=== PATIENT | male | born 1955 | race African-American/Black ===

== ENCOUNTER 2017-05-14 08:31 | Outpatient (CLI) | payer MEDICARE, MEDICAID ==
[2017-05-14] MEDS ORDERED: Gadobenate Dimeglumine 529 MG/1 ML (20ML VIAL) ONE (14:05)
== END 2017-05-14 08:32 | disposition home or self-care (01) ==
LOC: BICMRI 08:31
PROVIDERS: ATTEND Internal Medicine Gastroenterology
DX: K74.60 Unspecified cirrhosis of liver (principal); R17 Unspecified jaundice; R18.8 Other ascites; K76.89 Other specified diseases of liver; Z86.19 Personal history of other infectious and parasitic diseases
CPT/HCPCS: 74183; A9579

== ENCOUNTER 2017-05-22 09:36 | Inpatient (IN) | payer MEDICARE, MEDICAID ==
[2017-05-22 10:40] LABS: INR-International Normal Ratio 2.9; PTT 46.8 SEC (22.9-36.1); Prothrombin Time 31.4 SEC (12.0-14.7)
[2017-05-22 10:56] LABS: ALT (SGPT) 37 U/L (8-55); AST (SGOT) 131 U/L (5-34); Albumin 1.8 g/dL (3.5-5.0); Alkaline Phosphatase 74 U/L (40-150); Anion Gap 19 mmol/L (10-20); BUN (Urea Nitrogen) 20 mg/dL (8.4-25.7); Bilirubin, Total 20.8 mg/dL (0.2-1.2); CK (CPK) 71 U/L (30-200); Calc. Creatinine Clearance 0 mL/min (70-130); Calcium 8.5 mg/dL (7.8-10.44); Carbon Dioxide 17 mmol/L (22-29); Chloride 100 mmol/L (98-107); Estimated GFR-MDRD 26; Globulin 4.4 g/dL (2.4-3.5); Glucose 86 mg/dL (70-105); Lipase 5 U/L (8-78); Potassium 3.5 mmol/L (3.5-5.1); Protein, Total 6.2 g/dL (6.0-8.3); Sodium 132 mmol/L (136-145)
[2017-05-22 11:01] LABS: Band 4 % (5-11); Hemoglobin 7.5 g/dL (14.0-18.0); Lymphocytes 7 % (21-51); MDiff Complete? YES; Macrocytosis MODERATE=16-30 cells (100X) (0-5/hpf); Mean Corpuscular HGB CONC 33.1 g/dL (32.0-36.0); Mean Corpuscular Hemoglobin 38.5 pg (27.0-31.0); Mean Platelet Volume 9.2 fL (7.4-10.4); Monocytes 7 % (0-10); Neutrophil 80 % (42-75); PLT Morphology Comment Appears Decreased; Platelet Count 126 thou/uL (130-400); Polychromasia SLIGHT = 2-3 cells (100X) (0-2/hpf); RBC Distribution Width 14.7 % (11.5-14.5); Reactive Lymphocytes 2 % (0-10); Red Blood Cell (RBC) Count 1.96 mill/uL (4.70-6.10); Target Cells SLIGHT = 2-5 cells (100X) (0-1/hpf); White Blood Cell (WBC) Count 14.8 thou/uL (4.8-10.8)
[2017-05-22] MEDS ORDERED: Pantoprazole 40 MG VIAL ONE (11:02)
[2017-05-22 11:05] LABS: CKMB 2.2 ng/mL (0-6.6); Troponin I 0.065 ng/mL (< 0.028)
--- NOTE | 2017-05-22 11:06 | RAD ---
SINGLE VIEW OF THE CHEST: Comparison: 10-22-14 History: Altered mental status. FINDINGS: Single view of the chest shows a normal sized cardiomediastinal silhouette. There is no evidence of c onsolidation, mass, or pleural effusion. The bones are unremarkable. IMPRESSION: No evidence of acute cardiopulmonary disease. POS: [facility]
--- NOTE | 2017-05-22 11:09 | CT ---
NONCONTRAST HEAD CT: History: Decreased PO intake and hematemesis. Altered mental status. Comparison: None. Technique: Noncontrast head CT was performed from skull base to skull vertex. FINDINGS: No parenchymal hemorrhage. No extraaxial hematoma. No midline shift. Basilar cisterns are patent. Brain volume is age appropriate. Cortical gómez white matter differentiat ion is preserved. Ventricles and sulci are patent and symmetric. Minimal chronic small vessel ischemic change of the white matter. Calvarium is intact. Adequate aeration of the sinuses and mastoid air cells. IMPRESSION: No acute intracranial process. POS: [facility]
[2017-05-22] MEDS ORDERED: cefTRIAXone\\ROCEPHIN 2 GM, Admixture Fee 1 EACH in Sodium Chloride 0.9% 100 ML IVPB SCH (11:15)
[2017-05-22] MEDS ORDERED: Octreotide Acetate 100 MCG/ML VIAL SLOW IVP SCH (11:30)
[2017-05-22] MEDS ORDERED: Octreotide Acetate 1,250 MCG in Sodium Chloride 0.9% 250 ML 250 ML IVPB SCH ×2 (11:30→15:30)
[2017-05-22 12:52] LABS: Bilirubin Large (Negative); Blood, Urine Small (Negative); Leukocyte Negative (Negative)
[2017-05-22 12:53] LABS: Clarity Hazy (Clear)
[2017-05-22 12:54] LABS: Glucose, Urine (Dipstick) Unable to Interpret mg/dL (Negative); Nitrite Unable to Interpret (Negative)
--- NOTE | 2017-05-22 12:54 | HP ---
REASON FOR ADMISSION: Hematemesis. HISTORY OF PRESENT ILLNESS: This is a pleasant 61-year-old gentleman with a history of alcohol abuse and stomach cancer. He also has a history of, I believe, chronic pain in his neck and back. He was seen in my clinic roughly 2-3 weeks ago where he was noticed to be jaundiced. I did order lab and bowen cesar was found to have elevated liver enzymes and elevated bilirubin. He was sent to GI and I believe bowen cesar underwent further testing. He was found to have cirrhosis. At that time he was advised to stop dr bergman. What brought him to the hospital was yesterday he said he had 3 episodes of vomiting blood. His at that time wanted him to go to the emergency room; however, he refused. This morning he had a follow up appointment with Dr. Briones and his told him that he had been throwing up blood and therefore they advised him to go to the hospital. He also had altered level of consciousness. Bowen cesar also had abdominal pain. Currently, the patient is lethargic, but will respond to questioning and his family is at bedside. PAST MEDICAL HISTORY: 1. Stomach cancer with perforated ulcer in the past. 2. Dyslipidemia. 3. History of pulmonary embolism. PAST SURGICAL HISTORY: 1. Left shoulder surgery x2. 2. Right knee surgery. 3. Splenectomy. 4. I believe he had recent neck surgery or back surgery as well; however, the records of this are un available. ALLERGIES: None. MEDICATIONS: Currently unknown at this time of dictation. SOCIAL HISTORY: He does smoke cigars. He did drink a bottle of wine a day. However, he has cut primo t back to only one bottle in the last 2 weeks. FAMILY HISTORY: Noncontributory. REVIEW OF SYSTEMS: GENERAL: Admits to weakness, fatigue, no fever or chills. HEENT: No diplopia, amaurosis fugax, tinnitus, sore throat, hoarseness. CARDIOVASCULAR: No chest, arm or back pain. PULMONARY: He does have a history of PE. No cough or hemoptysis. GASTROINTESTINAL: See history of present illness. GENITOURINARY: No dysuria, nocturia, polyuria. ENDOCRINE: No polydipsia or heat or cold intolerance. MUSCULOSKELETAL: Admits to arthralgias. No lupus or myopathy. NEUROLOGIC: No history of TIA or seizure. All other systems are negative. PHYSICAL EXAMINATION: GENERAL: Pleasant gentleman who appears to be in no acute distress; however, he is jaundiced. He is lethargic. VITAL SIGNS: Blood pressure was 100/70, pulse 100, respirations 20. He is afebrile. HEENT: PERRLA, sclera clear and icteric. He had no arcus senilis or xanthelasma. He is jaundiced: NECK: Supple with no increased JVP or carotid bruit. Carotid had good upstroke with no thyromegaly. COR: Regular rate and rhythm. CHEST: Symmetrical. Clear to auscultation and percussion. ABDOMEN: Tight, positive ascites. Normoactive bowel sounds. He is tender in all quadrants. EXTREMITIES: Trace edema. He had palpable pedal pulses. SKIN: There is no evidence of ulcer, lesion or rash. NEUROLOGIC: He is awake and will answer questions, but is slow to respond. LABORATORY DATA: Showed white blood cell 14.8, H&H 7.5 and 22.8, platelet count 126. His sodium is 132, his creatinine is 3.04. Total bilirubin is 20, AST is 131. Brain CT was unremarkable. ASSESSMENT: 1. Hematemesis. 2. Cirrhosis. 3. Alcohol abuse. 4. Anemia secondary to above. 5. History of tobacco abuse. 6. Chronic pain. 7. Hypotension. 8. Multiple medical problems. PLAN: 1. The patient will be transferred to [facility] [place] where he will be kept n.p.o. We will also ask Dr. Briones to see the patient in consultation. 2. We will continue Protonix drip. 3. We will continue D5 half normal saline at 75 mL an hour. 4. We will begin Rocephin 1 gram IV q.24h. 5. H&H q.6 hours x2 will be ordered. 6. Blood work is already started to be transfused. 7. Dr. Brioens has already been asked to see the patient in consultation. 8. We will follow up in the morning. All questions answered to the patient's and 's satisfaction.
[2017-05-22 12:56] LABS: Urobilinogen UNABLE TO INTERPRET mg/dL (0.2-1.0)
[2017-05-22 13:00] LABS: Protein, Urine (Dipstick) 30 mg/dL (Neg-Trace); pH, Urine 5.7 (5.0-9.0)
[2017-05-22 13:01] LABS: RBC/HPF 0-3 HPF (0-3); WBC/HPF 0-3 HPF (0-3)
[2017-05-22 13:02] LABS: Bacteria/HPF None Seen HPF (None Seen); Crystals/HPF 1+ AMORPH URATES HPF (Negative); Hyaline Casts/LPF 4-6 HYALINE CAST LPF (0-3 Hyaline); Other Casts/LPF 7-10 EPITH CASTS LPF (0-3 Hyaline)
[2017-05-22] MEDS ORDERED: Succinylcholine Chloride 20 MG/ML 10 ml SYRINGE FS ONE (14:28)
[2017-05-22] MEDS ORDERED: PROPOFOL 200 MG/20 ML VIAL ONE (14:28)
[2017-05-22] MEDS ORDERED: Ondansetron HCl/PF 4 MG/2 ML Vial ONE (14:28)
[2017-05-22] MEDS ORDERED: Multivitamins, Adult 10 ML, Folic Acid 1 MG, Thiamine HCl 100 MG in Dextrose 5 %-0.45 %... IV SCH (17:00)
[2017-05-22] MEDS: Pantoprazole 80 MG, Admixture Fee 1 EACH in Sodium Chloride 0.9% 100 ML IVP SCH (17:05)
[2017-05-22] MEDS ORDERED: Morphine 2 MG/ML SYRINGE SLOW IVP PRN (19:18)
[2017-05-22] MEDS ORDERED: Fentanyl BOLUS 250 ML IVPB PRN (19:18)
[2017-05-22] MEDS ORDERED: Lorazepam 2 MG/ML VIAL SLOW IVP PRN (19:18)
[2017-05-22] MEDS ORDERED: DISCONTINUE PREVIOUS NARCOTIC PAIN MEDICATIONS AND BENZODIAZEPINES FS SCH (19:18)
[2017-05-22] MEDS ORDERED: Morphine 4 MG/ML Carpuject SLOW IVP PRN (19:19)
[2017-05-22 19:25] LABS: pH, Arterial 7.35 (7.35-7.45)
[2017-05-22 19:26] LABS: Base Excess (BEa) 11.3 mEq/L (0 (+/-) 2.5); CO2 Tension 24.1 mmHg (35.0-45.0); O2 Tension (PaO2) 150.3 mmHg (80.0-100.0)
[2017-05-22 19:27] LABS: Calcium, Ionized 1.1 mmol/L (1.12-1.30); Hematocrit-ABG 27.2 % (42.0-52.0); Hemoglobin (Hb) 8.3 g/dL (14.0-18.0)
[2017-05-22 19:28] LABS: Puncture Site RRA
[2017-05-22 19:29] LABS: ALV-art Gradient 101.175 (0-20)
[2017-05-22] MEDS: Sodium Chloride 0.9% 1,000 ML IV SCH (19:37)
[2017-05-22] MEDS: Propofol 1,000 MG/100 ML VIAL IV PRN (19:37)
[2017-05-23] MEDS: Pantoprazole 80 MG, Admixture Fee 1 EACH in Sodium Chloride 0.9% 100 ML IVP SCH ×3 (00:06→21:55)
[2017-05-23 00:10] LABS: Hemoglobin 8.3 g/dL (14.0-18.0)
[2017-05-23 00:32] LABS: Acetaminophen Less than 6.0 mcg/mL (10.0-30.0)
[2017-05-23 00:46] LABS: Lactic Acid 7.9 mmol/L (0.5-2.2)
--- NOTE | 2017-05-23 01:23 | CON ---
DATE OF CONSULTATION: 05/22/2017 REASON FOR CONSULTATION: GI bleed. HISTORY OF PRESENT ILLNESS: Mr. Gonzalez is a 61-year-old gentleman known to me from prior diagnosis of gastric antrum, which was made on EGD in 2009 at the time of presentation with anemia and melena, he also may had surgery for that and did well. He was followed by Dr. Pelayo for time. His followup EGDs, most recent performed in 07/2016, which were normal with a Billroth II anastomosis. No eviden ce of recurrent disease. No varices. He has also been treated for hepatitis C and he has cirrhosis related to this. His hepatitis C was eradicated with Harvoni. It was diagnosed in roughly 2012, but he did not take treatment until 2014. He has continued to drink alcohol since that time and has see n us about every 6 to 12 months with hepatoma screening with ultrasounds, which have been normal over time. Most recently, he presented to the office about a week ago, noted his urine to become yellow and he stopping drinking a bit and he had elevated bilirubin, AST, and ALT. It was felt that he may be had alcoholic hepatitis. He was told to stop drinking. He had also been taking some Tylenol. He patitis A, B, and C tests were negative. Alpha-fetoprotein for was negative. He is continued to drink it seems. He was seen back in the office for followup today and his noted he had vomit ed yesterday of blood, a couple of times in the shower. Apparently, she was trying to bring him to [facility] emergency room, but he refused and came to our office this morning. Here in the office, we sent h im to the emergency room secondary to history of hematemesis. He is very weak and seems somewhat con fused. He is lethargic, but the patient denies any fever or chills. He has had dark stools. He sta alexandra no vomiting today. Denies abdominal pain, and he is alert, and oriented to person, place, and ti me. PAST MEDICAL HISTORY: 1. Remote history of perforated ulcer for which he had surgery in the duodenum. 2. Gastric cancer for which he had surgery in 2009 at this hospital. 3. History of pulmonary embolus remote past. 4. History of cirrhosis with no varices and last EGD in 07/2016. 5. History of hepatitis C, treated. 6. History of ongoing alcohol abuse. PAST SURGICAL HISTORY: Left shoulder surgery x2, right knee surgery, splenectomy, previous gastric s urgery for both duodenal ulcer and for gastric cancer, most recent in 2009. ALLERGIES: None known. MEDICATIONS AT HOME: Megace, prednisone 10 mg daily, Uloric, hydrocodone, , Dexilant. PRESENT MEDICATIONS: Rocephin, octreotide drip, Protonix drip, D5 half normal saline 20 K at 75 mL a n hour. PHYSICAL EXAMINATION: GENERAL: The patient is resting in bed. He is a large man. He is sleepy, but he is alert. He know s it is 05/22/2017. Recalls seeing José Luis in my office earlier today. He knows who his prim audra physician is, he knows who his is. There is no asterixis or peripheral edema. VITAL SIGNS: Temperature is 97, pulse 91, blood pressure is 112/62, it is 96/56 on admission. HEENT: He is icteric. LUNGS: Clear. HEART: Regular rate and rhythm without clicks or murmurs. ABDOMEN: Slightly protuberant. There is no rebound. There is no guarding. There is no palpable he patosplenomegaly. EXTREMITIES: No clubbing, cyanosis, or edema. RECTAL: Reveals maroon stool in rectal vault. LABORATORY AND X-RAY FINDINGS: White count is 14.8, hemoglobin 7.5, it was 15.4 in 03/2012, MCV is 1 16, platelet count is 126, 80 segs, 7 bands. INR is 2.9. Sodium is 132, potassium is 3.5, BUN 20, c reatinine is 3, this is up from 0.94 on 05/03/2017. Bilirubin is 20 up from 13.8 on 05/03/2017. ___ __ is 9, AST 131, ALT 37, alkaline phosphatase 74, albumin 1.8, globulin 4.4. CK 71, lipase 5. AFP was 6.4. ASSESSMENT: 1. Significant anemia with history of hematemesis, 2 days ago he has had prior history of ulcers. Bowen cesar has cirrhosis, although he has never had varices before, he has had gastric antral for his maroon s tool in the rectal vault. He has a history of hematemesis. He needs EGD today. He has received 2 u nits of blood thus far for hemoglobin of 7.5. His blood pressure is stable. He is on octreotide dri p and PPI drip. We will proceed with EGD today. The risks, benefits, possible complications includi ng perforation, bleeding, reactions to medication, and aspiration have all been discussed with rosalio maciel, who understands and wishes to proceed. 2. Alcohol abuse, seems to be on DT protocol and he needs to have his magnesium and phosphorus check ed and he needs to get banana bag daily. 3. Acute renal failure likely related to his liver disease, although it could be related to dehydrat ion, could be other etiologies, he needs an ultrasound of his abdomen to see if he has ascites or blo cked kidneys. I suspect this is probably hepatorenal. 4. Infectious Disease. He needs to restart antibiotics, which has been Rocephin empirically for GI bleed in the setting of cirrhosis. He has significant ascites and consider paracentesis. His INR is improved. 5. Liver function. He has got worsening liver function and basically he has had liver failure at th is time with the increase in bilirubin to 20. This likely is related to alcohol abuse, but cannot ru le out Tylenol toxicity, acute viral hepatitis, or even the recent flu. With a bilirubin of 20, his prognosis is very poor if this is alcoholic hepatitis. We will follow along with you during this hos pitalization.
[2017-05-23 04:20] LABS: INR-International Normal Ratio 2.5; Prothrombin Time 27.6 SEC (12.0-14.7)
[2017-05-23 04:33] LABS: Band 2 % (5-11); Eosinophils 1 % (0-10); Hemoglobin 7.4 g/dL (14.0-18.0); Lymphocytes 9 % (21-51); MDiff Complete? YES; Mean Corpuscular HGB CONC 34.7 g/dL (32.0-36.0); Mean Platelet Volume 8.4 fL (7.4-10.4); Monocytes 8 % (0-10); Neutrophil 80 % (42-75); PLT Morphology Comment Appears Decreased; Platelet Count 100 thou/uL (130-400); RBC Distribution Width 19.1 % (11.5-14.5); White Blood Cell (WBC) Count 14.6 thou/uL (4.8-10.8)
[2017-05-23 04:37] LABS: ALT (SGPT) 56 U/L (8-55); AST (SGOT) 254 U/L (5-34); Albumin 1.8 g/dL (3.5-5.0); Alkaline Phosphatase 70 U/L (40-150); Anion Gap 16 mmol/L (10-20); BUN (Urea Nitrogen) 23 mg/dL (8.4-25.7); Bilirubin, Total 18.9 mg/dL (0.2-1.2); Calc. Creatinine Clearance 29 mL/min (70-130); Calcium 7.7 mg/dL (7.8-10.44); Carbon Dioxide 17 mmol/L (22-29); Chloride 105 mmol/L (98-107); Estimated GFR-MDRD 20; Globulin 3.5 g/dL (2.4-3.5); Glucose 110 mg/dL (70-105); Magnesium 1.7 mg/dL (1.6-2.6); Phosphorus 6.8 mg/dL (2.3-4.7); Potassium 3.6 mmol/L (3.5-5.1); Protein, Total 5.3 g/dL (6.0-8.3); Sodium 134 mmol/L (136-145)
[2017-05-23] MEDS: Sodium Chloride 0.9% 1,000 ML IV SCH ×2 (05:39→12:02)
[2017-05-23] MEDS: D5 1/2 NS w/20 mEq KCL 1,000 ML IV SCH ×2 (05:39→18:16)
[2017-05-23] MEDS: Multivitamins, Adult 10 ML, Folic Acid 1 MG, Thiamine HCl 100 MG in Dextrose 5 %-0.45 %... IV SCH (05:40)
--- NOTE | 2017-05-23 06:57 | CON ---
DATE OF CONSULTATION: 05/23/2017 CONSULTING PHYSICIAN: Dr. Alexander Parsno REASON FOR CONSULTATION: Ventilator management. The following encompasses 45 minutes critical care time. HISTORY OF PRESENT ILLNESS: This is a 61-year-old male who presented to the emergency room yesterday with upper GI bleeding. He has a history of alcohol abuse. I believe he was found to have variceal bleeding yesterday. Dr. Briones performed an EGD and the patient was left intubated afterward. PAST MEDICAL HISTORY: 1. Peptic ulcer disease with perforation requiring surgery of the duodenum. 2. Gastric cancer. 3. Pulmonary embolism. 4. Cirrhosis. 5. Hepatitis C, which was treated. 6. Alcohol abuse. PAST SURGICAL HISTORY: Left shoulder surgery, duodenal ulcer repair, gastric cancer surgery, splenec heather, right knee surgery. ALLERGIES: None. MEDICATIONS PRIOR TO ADMISSION: Megace, prednisone, Uloric, hydrocodone, Dexilant. SOCIAL HISTORY: Apparently drinks alcohol heavily, smokes cigars. No history of illicit use of subs tances other than what was prescribed. FAMILY MEDICAL HISTORY: Unremarkable. REVIEW OF SYSTEMS: Cannot be obtained as the patient is on mechanical ventilation. PHYSICAL EXAMINATION: VITAL SIGNS: Temperature 97.6, blood pressure 107/67, O2 sat 98%, intake for the last 12 hours 2195, output 55. HEENT: Pupils react. Sclerae anicteric. Oropharynx clear. NECK: No JVD. LUNGS: Clear to auscultation without wheezing. CARDIAC: S1, S2 regular. ABDOMEN: Soft, nontender. Surgical scars in the abdomen noted. EXTREMITIES: No clubbing, cyanosis, or edema. NEUROLOGIC: Moves all 4 extremities without difficulty. Follows commands. LABORATORY AND X-RAY FINDINGS: White blood cell count 14.6, hemoglobin 7.4, hematocrit 21.4, platele t count 100. INR is 2.5. PH 7.35, pCO2 of 24, pO2 150 on SIMV rate 10, tidal volume 500, PEEP 5, pr essure support 10, FiO2 40%. Sodium 134, potassium 3.6, chloride 105, CO2 17, BUN 23, creatinine 3.7 , glucose 110. Lactate 7.9, AST 254, ALT 56. BNP 148. Chest x-ray shows no mass, effusion or infil trate. ET tube is in good position. ASSESSMENT: 1. Variceal bleeding. 2. Anemia from blood loss. 3. Acute on chronic renal insufficiency. 4. Elevated liver function tests consistent with alcohol use. 5. Severe lactic acidosis. 6. Coagulopathy. PLAN: 1. I would go ahead and give him 2 more units of blood. 2. Continue correcting coagulopathy. 3. Would not extubate him with this degree of lactic acidosis. 4. He is on Protonix for GI prophylaxis. 5. Anticoagulation is contraindicated at this time for DVT prophylaxis. He will be left on pneumati c compression.
--- NOTE | 2017-05-23 07:09 | OP ---
PREPROCEDURE DIAGNOSES: 1. Liver failure. 2. Gastrointestinal bleed. 3. Coagulopathy with INR of 2.9. 4. Status post 2 units of packed red blood cells with hemoglobin 7.5 this morning. 5. Acute renal failure. POSTPROCEDURE DIAGNOSES: 1. Blood fresh with some small clots in the proximal stomach and distal esophagus requiring scope to be removed. The patient will be intubated for airway protection. 2. After the patient's airway was clear, we could suctionall old blood and irrigated away and it was felt to be severe erosive esophagitis at the distal esophagus, all oozing seemed to stop spontaneous ly with no visible vessel seen. 3. There was grade I varices in the esophagus with no visible bleeding stigmata seen. 4. Stomach was notable for Billroth I anastomosis distal gastrectomy with a prior history of gastric antral. There was no evidence of bleeding in the distal stomach anastomosis proximal duodenum or pr oximal stomach on retroflexed views. RECOMMENDATIONS: 1. Continue IV Protonix drip. Protonix drip was not started when the patient was transferred from [facility] ER to the ICU. 2. Continue the octreotide drip. 3. Continue banana bag every day. 4. Check hemoglobin every 8 hours. 5. Transfuse FFP this evening. 6. We will keep intubated for airway protection overnight as if he has ongoing bleeding, has a small stomach from previous gastric resection and has increased risk of aspiration. If he has no further bleeding, we consider extubation in the morning. ANESTHESIA: TIVA converted to general endotracheal anesthesia. PROCEDURE IN DETAIL: After the patient was informed of the risks, benefits, possible complications o f endoscopy including perforation, bleeding, reactions to medication and aspiration, informed consent was obtained, the patient brought to endoscopy suite where he was sedated in gradual fashion. Once he was comfortable, a bite block was placed in incisural orifice. The endoscope was advanced through the esophagus, stomach and second and third portion of duodenum and slowly removed. There was good visualization of mucosa. The esophagus was notable for some fresh blood distally, also some fresh bl ood in the proximal stomach and it was felt to be due to the patient's small gastric reservoir, he is at risk for aspiration, the scope was removed and the patient was intubated by Anesthesia by rapid s equence induction with no evidence of aspiration. The scope was then reintroduced into the esophagus , when the patient's airway was secured, the distal esophagus was irrigated, clear and there was dist al erosive esophagitis with some erosions. There were no visible vessels, active bleeding, or thromb in clots. There was some grade I varices with no stigmata of bleeding. There was no evidence of Mal nando-Shepherd tears. The stomach was entered and irrigated and cleared of all old blood. Retroflexed v iews revealed no evidence of gastric varices or other lesions or bleeding sites, the stomach distally was normal except for Billroth I anastomosis. The duodenum was normal as far as we could traverse w ith no active bleeding. The anastomosis between the duodenum and stomach was normal. At this point in time, the esophagus, stomach were observed for a long period of time, and call made to the blood b ank, because of diffuse ooziness. With an INR of 2.9 with no active bleeding sites identified, the d ecision was made not to cauterize, clip or band anything. Decision was made to leave the patient int ubated, resuscitate him, give him some FFP, and get him back to the ICU intubated for airway protecti on. If he has no further bleeding, we will extubate him overnight. If there is further bleeding, we will consider second look endoscopy tomorrow.
[2017-05-23] MEDS: Propofol 1,000 MG/100 ML VIAL IV PRN (07:51)
[2017-05-23 08:07] LABS: Lactic Acid 3.9 mmol/L (0.5-2.2)
--- NOTE | 2017-05-23 08:12 | RAD ---
CHEST ONE VIEW: History: Dyspnea. Follow up. Comparison: 05-22-17 FINDINGS: Cardiac silhouette is magnified by projection. Pulmonary vasculature is now more engorged with reticu lar nodular interstitial prominence throughout each lung. Mediastinum is midline. Tip of the endotrac heal catheter overlies the thoracic inlet. Nasogastric tube descends to the stomach. Mediastinum is m idline. There is no evidence of pneumothorax. IMPRESSION: 1. Endotracheal catheter and nasogastric tube are in good radiographic position. 2. Developing pulmonary edema. POS: [facility]
[2017-05-23 08:20] LABS: Base Excess (BEa) -4.9 mEq/L (0 (+/-) 2.5); CO2 Tension 30.2 mmHg (35.0-45.0); Hematocrit-ABG 24.9 % (42.0-52.0); Hemoglobin (Hb) 7.6 g/dL (14.0-18.0); O2 Tension (PaO2) 100.8 mmHg (80.0-100.0); pH, Arterial 7.42 (7.35-7.45)
[2017-05-23 08:21] LABS: Calcium, Ionized 1.1 mmol/L (1.12-1.30); Puncture Site RRA
[2017-05-23] MEDS ORDERED: cefTRIAXone\\ROCEPHIN 1 GM in Sodium Chloride 0.9% 100 ML IVPB SCH (09:00)
[2017-05-23 10:34] VITALS: BP 121/62
--- NOTE | 2017-05-23 10:46 | CON ---
NEPHROLOGY CONSULTATION NOTE DATE OF CONSULTATION: 05/23/2017 REASON FOR CONSULTATION: Elevated creatinine. HISTORY OF PRESENT ILLNESS: This is a very pleasant 61-year-old gentleman who [facility] with a baseline creatinine of less than 1, which increased to 3 yesterday and 3.77 today. The pa regina was hypertensive and is intubated. The patient does have lactic acidosis. The patient has alexandra er failure as well as a history of stomach cancer. The patient can give no further history. PAST MEDICAL AND SURGICAL HISTORY: As per chart is significant for stomach cancer, perforated ulcer, liver failure, pulmonary embolism, right knee surgery and splenectomy. HOME MEDICATIONS: List reviewed. HOSPITAL MEDICATIONS: Reviewed. ALLERGIES: Reviewed. REVIEW OF SYSTEMS: Unobtainable. PHYSICAL EXAMINATION: GENERAL: Patient is resting. VITAL SIGNS: Afebrile, pulse 70, breathing at 16 and blood pressure 97/58. HEAD/NECK: Normocephalic. Atraumatic. EYES: EOMI. No deformity. EARS: Clear. No ulcers. NOSE: Intact. No lesions. MOUTH: Clear. No discharge. THROAT: Clear. No exudate. LUNGS: Clear. No crackles. CARDIAC: S1, S2. No rub. ABDOMEN: Benign. BS+. GENITALIA/RECTUM: Beltran absent. BACK/EXTREMITIES: Edema 0+. Ulcer-. NEUROLOGICAL: The patient is intubated and has a Beltran catheter present. SKIN: Rash-. Bruise-. LYMPHATICS: Edema-. Ulcer-. ASSESSMENT AND RECOMMENDATIONS: 1. Acute kidney injury with chronic kidney disease, with multiorgan failure, most likely due to decr eased effective arterial blood volume and hypotension. There is no urgent indication for dialysis at this time. The patient appears to be oliguric. I agree with current management and plan. 2. Anemia. 3. Lactic acidosis. 4. Medications based on glomerular filtration rate are appropriate. Overall, prognosis is extremely poor. No family member was available to discuss the patient's situat ion.
[2017-05-23] MEDS: Albumin 25% 25 GM/100 ML BOT IVPB SCH ×3 (12:01→23:04)
[2017-05-23] MEDS ORDERED: cefTRIAXone\\ROCEPHIN 1 GM, Syringe 0.4 ML in Sterile Water 9.6 ML SLOW IVP SCH (14:00)
[2017-05-23] MEDS: cefTRIAXone\\ROCEPHIN 1 GM, Syringe 0.4 ML in Sterile Water 9.6 ML SLOW IVP SCH (14:57)
[2017-05-23] MEDS ORDERED: fentaNYL Citrate/PF 2,000 MCG in Sodium Chloride 0.9% 60 ML IV SCH (15:05)
--- NOTE | 2017-05-24 00:37 | PRG ---
DATE OF SERVICE: 05/23/2017 SUBJECTIVE: Mr. Gonzalez remains intubated. In talking with the nurses, Pulmonary is going to plan on trying to extubate him tomorrow as long as there is no further bleeding. So far today, he has not bl ed further. He has received 2 units of blood yesterday, 2 units of FFP, some albumin and 2 units of blood today. Attempts to try to increase his pressure and renal perfusion, he is finally making abou t 30 mL an hour of urine this evening. Additionally, his vent settings have been changed and propofo l has been stopped. He has been placed on fentanyl and it helped his pressure as well. He does open eyes to command, but does not follow commands otherwise. OBJECTIVE: VITAL SIGNS: Temperature is 98, he has been afebrile since admission. Heart rate 72 and blood press ure 109/80. Ins and outs, 2190 and 35 out earlier today. Again, this evening he has had a little bi t of increased urine output. HEENT: He is icteric. LUNGS: Decreased breath sounds at bases. ABDOMEN: Protuberant, but no masses are noted. EXTREMITIES: Reveal no clubbing, cyanosis or edema. LABORATORY STUDIES: White count 14.6, hemoglobin 7.4 at 3:55 this morning, he had 2 units of blood s bill then and platelet count was 100. INR was 2.5, down from 2.9 yesterday. PH of 7.42, bicarb 19, pO2 of 100. Sodium 136, potassium 3.6, BUN and creatinine are 23 and 3.77 is 3.9, phosphorus i s 6.8, magnesium 1.6, bilirubin 18.9, AST and ALT of 254 and 56, protein 5.3, albumin 1.8. Recent labs in clinic, alpha fetoprotein was normal. He had an MRI of the liver two weeks ago showed a cyst, but no masses, no biliary lesions. ASSESSMENT: 1. Suspected alcoholic hepatitis. He has been heavy drinker for years. He has recently had some si gns of decompensation, cannot rule out any kind of viral effect, although viral hepatitis serology in the office were negative. He denied recent illnesses. 2. Gastrointestinal bleeding with diffuse oozing at lower esophagus, proximal stomach with severe es ophagitis from reflux, lot of this related to his decompensation and coagulopathy. Hemoglobin now se ems to be stable with no signs of ongoing bleeding. There was no variceal bleeding. 3. Acute renal failure, likely hepatorenal with decreased renal function, sepsis is always considera tion. 4. Protuberant abdomen. There is minimal ascites on his recent MRI as an outpatient. I would not s et him up for repeat paracentesis, empirically placed him on antibiotics secondary to his elevated IN R and low platelet count will be high risk for bleeding. RECOMMENDATIONS: 1. Continue pushing colloid with either albumin, FFP or blood. 2. We will continue octreotide for one more day. 3. We will change to Protonix q.12 hours tomorrow if no bleeding. 4. Agree with extubation tomorrow if awake prior to starting him on some lactulose. 5. With regard to his liver, there are no signs of hepatoma. With regard to his history of gastric cancer, there is no sign of recurrence of this at this time on imaging or endoscopy. His most recent CEA; however, was in 2012, we are going to repeat this. At this time, he remains to be a very poor prognosis related to his renal failure in the setting of decompensated liver disease.
[2017-05-24] MEDS: Sodium Chloride 0.9% 1,000 ML IV SCH ×4 (02:30→18:32)
[2017-05-24] MEDS: Albumin 25% 25 GM/100 ML BOT IVPB SCH ×4 (05:01→23:17)
[2017-05-24 05:20] LABS: INR-International Normal Ratio 2.6; Prothrombin Time 29.2 SEC (12.0-14.7)
[2017-05-24 05:33] LABS: Lactic Acid 1.2 mmol/L (0.5-2.2)
[2017-05-24] MEDS: Multivitamins, Adult 10 ML, Folic Acid 1 MG, Thiamine HCl 100 MG in Dextrose 5 %-0.45 %... IV SCH (05:42)
[2017-05-24 05:46] LABS: ALT (SGPT) 57 U/L (8-55); AST (SGOT) 212 U/L (5-34); Albumin 2.6 g/dL (3.5-5.0); Alkaline Phosphatase 72 U/L (40-150); Anion Gap 11 mmol/L (10-20); BUN (Urea Nitrogen) 33 mg/dL (8.4-25.7); Bilirubin, Total 19.7 mg/dL (0.2-1.2); Calc. Creatinine Clearance 25 mL/min (70-130); Calcium 8.1 mg/dL (7.8-10.44); Carbon Dioxide 21 mmol/L (22-29); Chloride 104 mmol/L (98-107); Estimated GFR-MDRD 17; Globulin 3.3 g/dL (2.4-3.5); Glucose 95 mg/dL (70-105); Phosphorus 5.3 mg/dL (2.3-4.7); Potassium 3.1 mmol/L (3.5-5.1); Protein, Total 5.9 g/dL (6.0-8.3); Sodium 133 mmol/L (136-145)
[2017-05-24 06:45] LABS: Band 8 % (5-11); Eosinophils 2 % (0-10); Hemoglobin 9.4 g/dL (14.0-18.0); Lymphocytes 14 % (21-51); MDiff Complete? YES; Mean Corpuscular HGB CONC 33.8 g/dL (32.0-36.0); Mean Platelet Volume 8.6 fL (7.4-10.4); Monocytes 4 % (0-10); Neutrophil 72 % (42-75); PLT Morphology Comment Appears Decreased; Platelet Count 97 thou/uL (130-400); RBC Distribution Width 18.4 % (11.5-14.5); Red Blood Cell (RBC) Count 2.69 mill/uL (4.70-6.10); White Blood Cell (WBC) Count 10.5 thou/uL (4.8-10.8)
[2017-05-24 07:21] LABS: Actual Bicarbonate (HCO3a) 18.7 mEq/L (22-26); Base Excess (BEa) -5.7 mEq/L (0 (+/-) 2.5); CO2 Tension 32.6 mmHg (35.0-45.0); Calcium, Ionized 1.1 mmol/L (1.12-1.30); Hematocrit-ABG 30.4 % (42.0-52.0); Hemoglobin (Hb) 9.3 g/dL (14.0-18.0); O2 Tension (PaO2) 93.1 mmHg (80.0-100.0); Puncture Site RRA; pH, Arterial 7.38 (7.35-7.45)
[2017-05-24] MEDS: Pantoprazole 80 MG, Admixture Fee 1 EACH in Sodium Chloride 0.9% 100 ML IVP SCH ×2 (07:30→15:53)
[2017-05-24] MEDS: D5 1/2 NS w/20 mEq KCL 1,000 ML IV SCH (07:31)
[2017-05-24] MEDS ORDERED: DC Sedation Protocol FS ONE (07:44)
--- NOTE | 2017-05-24 07:48 | PDOC.PULCC ---
CCU Progress Note: Subj/Obj - Subjective Date: 05/24/17 Time: 07:46 Subjective: Intubated and on vent. Follows commands - Objective Allergies/Adverse Reactions: Allergies Allergy/AdvReac Type Severity Reaction Status Date / Time No Known Allergies Allergy Verified 10/22/14 21:59 Medications: Current Medications Albumin Human (Albumin 25%) 25 gm IVPB Q6HR LIZ Stop: 05/24/17 18:01 Last Admin: 05/24/17 05:01 Dose: 25 gm Potassium Chloride/Dextrose/Sod Cl (D5 1/2 Ns W/20 Meq Kcl) 1,000 mls @ 75 mls/ hr IV .[id number] [facility] Last Admin: 05/24/17 07:31 Dose: Not Given Pantoprazole Sodium 80 mg/Miscellaneous Medication 1 each/ Sodium Chloride 100 mls @ 10 mls/hr IVP INF LIZ Last Admin: 05/24/17 07:30 Dose: 100 mls Octreotide Acetate 1,250 mcg/ (Sodium Chloride) 251.25 mls @ 5.02 mls/hr IVPB INF LIZ PRN Reason: 25 MCG/HR Last Admin: 05/24/17 07:30 Dose: 251.25 mls Ceftriaxone Sodium 1 gm/ (Syringe 0.4 ml/ Sterile Water) 10 mls @ 120 mls/hr SLOW IVP 1400 LIZ Stop: 05/29/17 23:59 Last Admin: 05/23/17 14:57 Dose: 10 mls Sodium Chloride (Normal Saline 0.9%) 1,000 mls @ 125 mls/hr IV .Q8H [facility] Last Admin: 05/24/17 07:31 Dose: Not Given Fentanyl Citrate (Fentanyl Bolus) 250 mls @ 0 mls/hr IVPB PRN PRN; As Directed PRN Reason: Breakthrough pain Stop: 06/21/17 19:18 Multivitamins 10 ml/ Folic Acid 1 mg/ Thiamine HCl 100 mg / Dextrose/Sodium Chloride 1,011.2 mls @ 100 mls/hr IV Q24HR@0600 [facility] Last Admin: 05/24/17 05:42 Dose: 1,011.2 mls Fentanyl Citrate 2,000 mcg/ (Sodium Chloride) 100 mls @ 0 mls/hr IV INF LIZ; Per Protocol PRN Reason: Protocol Stop: 06/22/17 15:05 Last Admin: 05/23/17 15:41 Dose: 100 mls Lorazepam (Ativan) 2 mg SLOW IVP Q2H PRN PRN Reason: Anxiety to achieve Mccabe 2-3 Stop: 06/21/17 19:18 Last Admin: 05/22/17 19:37 Dose: 2 mg Morphine Sulfate (Morphine) 2 mg SLOW IVP Q2H PRN PRN Reason: Pain Discontinue Previous Narcotic Pain Medications And Benzodiazepines 1 each FS .ONE [facility] Stop: 06/21/17 19:18 Propofol (Diprivan) 1,000 mg IV INF PRN; Protocol PRN Reason: TO ACHIEVE MCCABE SCORE 2-3 Stop: 06/21/17 19:18 Last Admin: 05/23/17 07:51 Dose: 1,000 mg Sodium Chloride (Flush - Normal Saline) 10 ml IVF Q12HR [facility] Last Admin: 05/24/17 07:31 Dose: 10 ml Sodium Chloride (Flush - Normal Saline) 10 ml IVF PRN PRN PRN Reason: Saline Flush MAR Reviewed: Yes Vital Signs and I&O: Vital Signs Temp 97.6 F 05/24/17 07:00 Pulse 97 05/24/17 07:02 Resp 9 L 05/24/17 05:25 BP 121/62 05/23/17 10:37 Pulse Ox 100 05/24/17 03:57 Intake & Output 05/23/17 05/24/17 05/24/17 18:59 06:59 18:59 Intake Total 1465.0 2325.3 Output Total 102 178 0 Balance 1363.0 2147.3 0 Weight 214 lb 8 oz Intake: Intake, IV Amount 1465.0 1625.3 Albumin 25% 25 gm IVPB 175 Q6HR [facility] Rx#:[id number] Multivitamins, Adult 10 756 ml Folic Acid 1 mg Thiamine HCl 100 mg In Dextrose 5 %-0.45 % NaCl 1,000 ml @ 100 mls/hr IV Q24HR [facility] Rx#:[id number] Multivitamins, Adult 10 89 ml Folic Acid 1 mg Thiamine HCl 100 mg In Dextrose 5 %-0.45 % NaCl 1,000 ml @ 100 mls/hr IV Q24HR@0600 [facility] Rx#: [id number] Octreotide Acetate 1,250 63.6 59 mcg In Sodium Chloride 0. 9% 250 ML 250 ml @ 25 MCG /HR 5.02 mls/hr IVPB INF [facility] Rx#:[id number] Pantoprazole 80 mg 127 121 Admixture Fee 1 each In Sodium Chloride 0.9% 100 ml @ 10 mls/hr IVP INF [facility] Rx#:[id number] Propofol 1000 mg (See 256 Protocol) IV INF PRN Rx#: [id number] Sodium Chloride 0.9% 1, 254 1151 000 ml @ 125 mls/hr IV . Q8H [facility] Rx#:[id number] fentaNYL Citrate/PF 2,000 8.4 30.3 mcg In Sodium Chloride 0 .9% 60 ml @ Per Protocol IV INF [facility] Rx#:[id number] Blood Product 0 700 Packed Cells - 0 350 Leukoreduced Unit [id number] Packed Cells - 0 350 Leukoreduced Unit [id number] Output: Gastric Drainage 0 0 Output, Beltran 102 178 0 Other: Voiding Method Indwelling Catheter Indwelling Catheter Vent Setting: SIMV/PC rate 5 pressure 5 25% Spontaneous Breathing Test: done (ok) CCU Progress Note: Exam - Physical Exam Constitutional: NAD Deviation from normal: icteric Neck: no JVD Cardiovascular: RRR Respiratory: clear to auscultation bilaterally Gastrointestinal: soft, non-tender Musculoskeletal: edema present Neurological: moves all 4 limbs Skin: no rash CCU Progress Note: Data - Labs Result Diagrams: 05/24/17 04:50 05/24/17 04:50 Lab results: Laboratory Results 05/22/17 05/22/17 05/22/17 12:26 19:21 23:58 WBC RBC Hgb Hct MCV MCH MCHC RDW Plt Count MPV Neutrophils % (Manual) Band Neuts % (Manual) Lymphocytes % (Manual) Monocytes % (Manual) Eosinophils % (Manual) Plt Morphology Comment PT INR Specimen Type ARTERIAL Puncture Site RRA Bicarbonate Actual 13.0 L ABG pH 7.35 ABG pCO2 24.1 L* ABG pO2 150.3 H ABG O2 Sat Calc/Erwin 99.1 ABG O2 Content 11.6 L ABG Base Excess 11.3 H ABG Hematocrit 27.2 L ABG Hemoglobin 8.3 L ABG Oxyhemoglobin 96.7 ABG Carboxyhemoglobin 1.6 ABG Methemoglobin 0.7 ABG Deoxyhemoglobin 0.9 Harjinder Test POSITIVE A-a O2 Gradient 101.175 H Sodium 134 L Potassium 3.8 Chloride 102 Ionized Calcium 1.1 L Mode of Support SIMV % Minute Volume 17.0 Mechanical Rate 10 Spontaneous Rate 11 Inspired O2 40 Inspiratory Time Tidal Volume 500 Spontaneous Tidal Vol 855 Peak Inspir Pressure 15 Pressure Support 10 PEEP or CPAP 5.0 Carbon Dioxide Anion Gap BUN Creatinine Estimated GFR (MDRD) Glucose Lactic Acid 7.9 H* Calcium Phosphorus Magnesium Total Bilirubin AST ALT Alkaline Phosphatase Serum Total Protein Albumin Globulin Albumin/Globulin Ratio Urine Color Brown H Urine Clarity Hazy Urine pH 5.7 Ur Specific Central 1.020 Urine Protein 30 H Urine Glucose (UA) Unable to Interpret Urine Ketones Unable to Interpret Urine Blood Small H Urine Nitrite Unable to Interpret Urine Bilirubin Large H Urine Urobilinogen UNABLE TO INTERPRET Ur Leukocyte Esterase Negative Urine RBC 0-3 Urine WBC 0-3 Ur Squamous Epith Cells 4-6 H Ur Transition Epith Cell 4-6 H Ur Renal Epithelial Cell 11-20 H Urine Crystals 1+ AMORPH URATES Urine Bacteria None Seen Hyaline Casts 4-6 HYALINE CAST H Other Casts 7-10 EPITH CASTS H Acetaminophen 05/22/17 05/22/17 05/23/17 23:58 23:58 03:55 WBC RBC Hgb 8.3 L Hct 24.4 L MCV MCH MCHC RDW Plt Count MPV Neutrophils % (Manual) Band Neuts % (Manual) Lymphocytes % (Manual) Monocytes % (Manual) Eosinophils % (Manual) Plt Morphology Comment PT 27.6 H INR 2.5 Specimen Type Puncture Site Bicarbonate Actual ABG pH ABG pCO2 ABG pO2 ABG O2 Sat Calc/Erwin ABG O2 Content ABG Base Excess ABG Hematocrit ABG Hemoglobin ABG Oxyhemoglobin ABG Carboxyhemoglobin ABG Methemoglobin ABG Deoxyhemoglobin Harjinder Test A-a O2 Gradient Sodium Potassium Chloride Ionized Calcium Mode of Support % Minute Volume Mechanical Rate Spontaneous Rate Inspired O2 Inspiratory Time Tidal Volume Spontaneous Tidal Vol Peak Inspir Pressure Pressure Support PEEP or CPAP Carbon Dioxide Anion Gap BUN Creatinine Estimated GFR (MDRD) Glucose Lactic Acid Calcium Phosphorus Magnesium Total Bilirubin AST ALT Alkaline Phosphatase Serum Total Protein Albumin Globulin Albumin/Globulin Ratio Urine Color Urine Clarity Urine pH Ur Specific Central Urine Protein Urine Glucose (UA) Urine Ketones Urine Blood Urine Nitrite Urine Bilirubin Urine Urobilinogen Ur Leukocyte Esterase Urine RBC Urine WBC Ur Squamous Epith Cells Ur Transition Epith Cell Ur Renal Epithelial Cell Urine Crystals Urine Bacteria Hyaline Casts Other Casts Acetaminophen Less than 6.0 L 05/23/17 05/23/17 05/23/17 03:55 03:55 07:42 WBC 14.6 H RBC 2.00 L Hgb 7.4 L Hct 21.4 L MCV 107.0 H MCH 37.0 H MCHC 34.7 RDW 19.1 H Plt Count 100 L MPV 8.4 Neutrophils % (Manual) 80 H Band Neuts % (Manual) 2 L Lymphocytes % (Manual) 9 L Monocytes % (Manual) 8 Eosinophils % (Manual) 1 Plt Morphology Comment Appears Decreased L PT INR Specimen Type Puncture Site Bicarbonate Actual ABG pH ABG pCO2 ABG pO2 ABG O2 Sat Calc/Erwin ABG O2 Content ABG Base Excess ABG Hematocrit ABG Hemoglobin ABG Oxyhemoglobin ABG Carboxyhemoglobin ABG Methemoglobin ABG Deoxyhemoglobin Harjinder Test A-a O2 Gradient Sodium 134 L Potassium 3.6 Chloride 105 Ionized Calcium Mode of Support % Minute Volume Mechanical Rate Spontaneous Rate Inspired O2 Inspiratory Time Tidal Volume Spontaneous Tidal Vol Peak Inspir Pressure Pressure Support PEEP or CPAP Carbon Dioxide 17 L Anion Gap 16 BUN 23 Creatinine 3.77 H Estimated GFR (MDRD) 20 Glucose 110 H Lactic Acid 3.9 H Calcium 7.7 L Phosphorus 6.8 H Magnesium 1.7 Total Bilirubin 18.9 H AST 254 H ALT 56 H Alkaline Phosphatase 70 Serum Total Protein 5.3 L Albumin 1.8 L Globulin 3.5 Albumin/Globulin Ratio 0.5 L Urine Color Urine Clarity Urine pH Ur Specific Central Urine Protein Urine Glucose (UA) Urine Ketones Urine Blood Urine Nitrite Urine Bilirubin Urine Urobilinogen Ur Leukocyte Esterase Urine RBC Urine WBC Ur Squamous Epith Cells Ur Transition Epith Cell Ur Renal Epithelial Cell Urine Crystals Urine Bacteria Hyaline Casts Other Casts Acetaminophen 05/23/17 05/24/17 05/24/17 08:15 04:50 04:50 WBC RBC Hgb Hct MCV MCH MCHC RDW Plt Count MPV Neutrophils % (Manual) Band Neuts % (Manual) Lymphocytes % (Manual) Monocytes % (Manual) Eosinophils % (Manual) Plt Morphology Comment PT 29.2 H INR 2.6 Specimen Type ARTERIAL Puncture Site RRA Bicarbonate Actual 19.0 L ABG pH 7.42 ABG pCO2 30.2 L ABG pO2 100.8 H ABG O2 Sat Calc/Erwin 98.0 ABG O2 Content 10.5 L ABG Base Excess -4.9 L ABG Hematocrit 24.9 L ABG Hemoglobin 7.6 L ABG Oxyhemoglobin 96.1 ABG Carboxyhemoglobin 1.4 ABG Methemoglobin 0.6 ABG Deoxyhemoglobin Harjinder Test POSITIVE A-a O2 Gradient 146.650 H Sodium 133 L 133 L Potassium 3.7 3.1 L Chloride 100 104 Ionized Calcium 1.1 L Mode of Support SIMV % Minute Volume Mechanical Rate 10 Spontaneous Rate Inspired O2 40 Inspiratory Time Tidal Volume 500 Spontaneous Tidal Vol Peak Inspir Pressure Pressure Support 10 PEEP or CPAP 5.0 Carbon Dioxide 21 L Anion Gap 11 BUN 33 H Creatinine 4.41 H Estimated GFR (MDRD) 17 Glucose 95 Lactic Acid Calcium 8.1 Phosphorus 5.3 H Magnesium 2.0 Total Bilirubin 19.7 H AST 212 H ALT 57 H Alkaline Phosphatase 72 Serum Total Protein 5.9 L Albumin 2.6 L Globulin 3.3 Albumin/Globulin Ratio 0.8 L Urine Color Urine Clarity Urine pH Ur Specific Central Urine Protein Urine Glucose (UA) Urine Ketones Urine Blood Urine Nitrite Urine Bilirubin Urine Urobilinogen Ur Leukocyte Esterase Urine RBC Urine WBC Ur Squamous Epith Cells Ur Transition Epith Cell Ur Renal Epithelial Cell Urine Crystals Urine Bacteria Hyaline Casts Other Casts Acetaminophen 05/24/17 05/24/17 05/24/17 04:50 04:50 07:10 WBC 10.5 RBC 2.69 L Hgb 9.4 L Hct 27.9 L MCV 104.0 H MCH 35.0 H MCHC 33.8 RDW 18.4 H Plt Count 97 L MPV 8.6 Neutrophils % (Manual) 72 Band Neuts % (Manual) 8 Lymphocytes % (Manual) 14 L Monocytes % (Manual) 4 Eosinophils % (Manual) 2 Plt Morphology Comment Appears Decreased L PT INR Specimen Type ARTERIAL Puncture Site RRA Bicarbonate Actual 18.7 L ABG pH 7.38 ABG pCO2 32.6 L ABG pO2 93.1 ABG O2 Sat Calc/Erwin 97.5 ABG O2 Content 12.6 L ABG Base Excess -5.7 L ABG Hematocrit 30.4 L ABG Hemoglobin 9.3 L ABG Oxyhemoglobin 95.3 ABG Carboxyhemoglobin 1.6 ABG Methemoglobin 0.6 ABG Deoxyhemoglobin Harjinder Test A-a O2 Gradient 30.140 H Sodium 134 L Potassium 3.0 L Chloride 101 Ionized Calcium 1.1 L Mode of Support SIMV/PC % Minute Volume Mechanical Rate 6 Spontaneous Rate Inspired O2 23 Inspiratory Time 2.50 Tidal Volume Spontaneous Tidal Vol Peak Inspir Pressure 5 Pressure Support 5 PEEP or CPAP 5.0 Carbon Dioxide Anion Gap BUN Creatinine Estimated GFR (MDRD) Glucose Lactic Acid 1.2 Calcium Phosphorus Magnesium Total Bilirubin AST ALT Alkaline Phosphatase Serum Total Protein Albumin Globulin Albumin/Globulin Ratio Urine Color Urine Clarity Urine pH Ur Specific Central Urine Protein Urine Glucose (UA) Urine Ketones Urine Blood Urine Nitrite Urine Bilirubin Urine Urobilinogen Ur Leukocyte Esterase Urine RBC Urine WBC Ur Squamous Epith Cells Ur Transition Epith Cell Ur Renal Epithelial Cell Urine Crystals Urine Bacteria Hyaline Casts Other Casts Acetaminophen - ABG Interpretation Attestation: I reviewed and interpreted this ABG. ABG Results: ABG pH 7.38 (7.35-7.45) 05/24/17 07:10 ABG pCO2 32.6 mmHg (35.0-45.0) L 05/24/17 07:10 ABG O2 Sat Calc/Erwin 97.5 % (94.0-100.0) 05/24/17 07:10 ABG Base Excess -5.7 mEq/L (0 (+/-) 2.5) L 05/24/17 07:10 Interpretation: normal - Radiology Interpretation Chest x-ray Status: image reviewed by me (clear lung humphreys) CCU Progress Note: A/P - Problems (1) Acute respiratory failure with hypoxia Current Visit: Yes Status: Acute Code(s): J96.01 - ACUTE RESPIRATORY FAILURE WITH HYPOXIA (2) Esophageal varices with bleeding Current Visit: Yes Status: Acute Code(s): I85.01 - ESOPHAGEAL VARICES WITH BLEEDING (3) Coagulopathy Current Visit: Yes Status: Acute (4) Alcoholic hepatitis without ascites Current Visit: Yes Status: Acute Code(s): K70.10 - ALCOHOLIC HEPATITIS WITHOUT ASCITES - Time Spent with Patient Time (minutes): 30 (cc time) - Plan Plan: Wean and extubate Continue albumin DT precautions
--- NOTE | 2017-05-24 08:11 | RAD ---
SINGLE VIEW OF THE CHEST: COMPARISON: 05/23/17, 05/22/17. HISTORY: Ventilated patient with respiratory failure. FINDINGS: A single view of the chest shows a normal-size cardiomediastinal silhouette. An endotracheal tube is seen in good position. An NG tube is seen with its tip in the stomach. There is a 1.6 cm mass-like opacity projecting over the mid portion of the right lung. This was not seen on 05/22/17 and has dev eloped in the interim. This may represent a small amount of fluid within the minor fissure that is l oculated. This could also represent an infiltrate. IMPRESSION: 1. Appropriate position of lines and tubes. 2. Mass-like opacity in the right thorax developed since 05/22 and may represent loculated fluid with in the fissure or an infiltrate. POS: OFF
--- NOTE | 2017-05-24 08:31 | PRG ---
DATE OF SERVICE: 05/24/2017 SUBJECTIVE: The patient is awake. He will not follow commands. He was just extubated. PHYSICAL EXAMINATION: VITAL SIGNS: Blood pressure is 90/77. He is on nutrition. His heart rate is 100. He is afebrile. COR: Regular rate and rhythm. CHEST: Symmetrical. Clear to auscultation and percussion upper lobes. ABDOMEN: Hypoactive bowel sounds. He is distended. EXTREMITIES: He has SCDs on. He had palpable pedal pulses. SKIN: There is no evidence of ulceration, lesion or rash. NEUROLOGIC: His eyes are open, but he will not follow commands. LABORATORY DATA: Today was H&H 9.4 and 27.9. His platelet count is 97. His sodium is 133, potassiu m 3.1, BUN 33, creatinine 4.41. Elevated liver enzymes. ASSESSMENT: 1. Bleeding esophageal varices. 2. Anemia secondary to above. 3. Renal insufficiency. 4. Cirrhosis with coagulopathy. 5. Hypotension. PLAN: 1. We will ask Dr. Lu to see the patient in consultation for his kidney function. 2. We will follow up with lab in the morning. We appreciate all consultants seeing this patient.
[2017-05-24] MEDS: cefTRIAXone\\ROCEPHIN 1 GM, Syringe 0.4 ML in Sterile Water 9.6 ML SLOW IVP SCH (14:10)
--- NOTE | 2017-05-24 17:25 | PRG ---
DATE OF SERVICE: 05/24/2017 SUBJECTIVE: This is a 61-year-old gentleman being seen for acute kidney injury. The patient cannot answer any questions. The patient is extubated. OBJECTIVE: GENERAL: The patient is resting. VITAL SIGNS: Afebrile, pulse 68, breathing at 16, blood pressure 91/52. HEAD/NECK: Normocephalic. Atraumatic. EYES: EOMI. No deformity. EARS: Clear. No ulcers. NOSE: Intact. No lesions. MOUTH: Clear. No discharge. THROAT: Clear. No exudate. LUNGS: Clear. No crackles. CARDIAC: S1, S2. No rub. ABDOMEN: Benign. BS+. GENITALIA/RECTUM: Beltran absent. BACK/EXTREMITIES: Edema 0+. Ulcer-. NEUROLOGICAL: The patient is resting. SKIN: Rash-. Bruise-. LYMPHATICS: Edema-. Ulcer-. LABORATORY DATA: Showed a hemoglobin of 9.4. Creatinine 4.4. ASSESSMENT AND PLAN: 1. Acute kidney injury with chronic kidney disease, most likely due to decreased effective arterial blood volume, hypertension and multiple other comorbidities and multiorgan failure. No indication fo r dialysis. 2. Hypertension, remains on pressors. 3. Anemia, stable. 4. Medications based on glomerular filtration rate are appropriate. Overall, prognosis is extremely poor. No urgent indication for dialysis. This was discussed with th e family.
--- NOTE | 2017-05-24 18:06 | PRG ---
DATE OF SERVICE: 05/24/2017 SUBJECTIVE: Mr. Gonzalez is not urinating. He is extubated. He follows commands per nursing staff. L lanette alone at home, does not localize any pain. OBJECTIVE: VITAL SIGNS: Heart rate is 92, blood pressure 96/70, temperature 97.6. In's and out's 3510 in and 2 80 out. HEENT: Eyes are icteric. LUNGS: Decreased breath sounds. HEART: Regular rate and rhythm. ABDOMEN: tenderness. EXTREMITIES: Reveal slight edema. LABORATORY STUDIES: White count 10, hemoglobin 9.4 and platelet count 97,000. INR is 2.6 today. So dium 123, potassium 3.1, BUN and creatinine 33 and 4.41. Phosphorous 5.3, bilirubin 19, AST and ALT are 211 and 57, albumin is 2.6, less than 6. ASSESSMENT: 1. Gastrointestinal bleeding, resolved. 2. Acute alcoholic hepatitis on top of cirrhosis with decompensation. 3. Hepatic encephalopathy, likely hepatorenal syndrome. RECOMMENDATIONS: 1. I would avoid dialysis as this patient as it has not shown improved outcomes in patients with alexadnra er failure and hepatorenal syndrome. 2. We will not wean off octreotide as there were no bleeding varices. This may help in hepatorenal syndrome. 3. Continue IV Protonix for erosive esophagitis. 4. Continue PPI. 5. We will continue albumin infusion.
[2017-05-24] MEDS: Rifaximin 550 MG TAB PO SCH (20:47)
[2017-05-25] MEDS: D5 1/2 NS w/20 mEq KCL 1,000 ML IV SCH ×2 (00:28→09:31)
[2017-05-25] MEDS: Sodium Chloride 0.9% 1,000 ML IV SCH (02:35)
[2017-05-25] MEDS: Pantoprazole 80 MG, Admixture Fee 1 EACH in Sodium Chloride 0.9% 100 ML IVP SCH ×2 (03:16→23:56)
[2017-05-25] MEDS: Albumin 25% 25 GM/100 ML BOT IVPB SCH ×4 (05:00→23:56)
[2017-05-25] MEDS: Multivitamins, Adult 10 ML, Folic Acid 1 MG, Thiamine HCl 100 MG in Dextrose 5 %-0.45 %... IV SCH (05:10)
[2017-05-25 06:24] LABS: Band 13 % (5-11); Eosinophils 3 % (0-10); Hemoglobin 8.3 g/dL (14.0-18.0); Lactic Acid 2.1 mmol/L (0.5-2.2); Lymphocytes 3 % (21-51); MDiff Complete? YES; Mean Corpuscular HGB CONC 34.1 g/dL (32.0-36.0); Mean Corpuscular Hemoglobin 35.2 pg (27.0-31.0); Mean Platelet Volume 8.2 fL (7.4-10.4); Monocytes 5 % (0-10); Neutrophil 75 % (42-75); PLT Morphology Comment Appears Decreased; Platelet Count 87 thou/uL (130-400); RBC Distribution Width 18.1 % (11.5-14.5); Red Blood Cell (RBC) Count 2.36 mill/uL (4.70-6.10); White Blood Cell (WBC) Count 10.5 thou/uL (4.8-10.8)
[2017-05-25 06:28] LABS: ALT (SGPT) 42 U/L (8-55); AST (SGOT) 150 U/L (5-34); Albumin 3.1 g/dL (3.5-5.0); Alkaline Phosphatase 66 U/L (40-150); Anion Gap 14 mmol/L (10-20); BUN (Urea Nitrogen) 36 mg/dL (8.4-25.7); Bilirubin, Total 18.3 mg/dL (0.2-1.2); Calc. Creatinine Clearance 26 mL/min (70-130); Calcium 8.3 mg/dL (7.8-10.44); Carbon Dioxide 17 mmol/L (22-29); Chloride 108 mmol/L (98-107); Estimated GFR-MDRD 17; Globulin 2.5 g/dL (2.4-3.5); Glucose 69 mg/dL (70-105); Potassium 3.1 mmol/L (3.5-5.1); Protein, Total 5.6 g/dL (6.0-8.3); Sodium 136 mmol/L (136-145)
--- NOTE | 2017-05-25 07:58 | PRG ---
DATE OF SERVICE: 05/25/2017 Mr. Gonzalez is grossly encephalopathic. He will wake up and follow some commands, but is largely nonve rbal. PHYSICAL EXAMINATION: VITAL SIGNS: Temperature is 97.7, pulse 115, blood pressure 113/83. 24 hour intake 3478, output 642 . HEENT: Unremarkable except for icteric sclerae. NECK: No JVD. LUNGS: Coarse rhonchi. CARDIOVASCULAR: S1, S2 regular. ABDOMEN: Soft, protuberant. EXTREMITIES: No clubbing, cyanosis, trace edema. LABORATORY DATA: Sodium 136, potassium 3.1, chloride 108, CO2 17, BUN 36, creatinine 4.4, glucose 69 , AST 150, ALT 42, total bilirubin 18.3, albumin 3.1. White blood cell count 10.5, hemoglobin 8.3, h ematocrit 24.4, platelet count 87. Chest x-ray is pending. ASSESSMENT: 1. Hepatic encephalopathy. 2. Status post acute respiratory failure. 3. Esophageal varices. 4. Grossly elevated bilirubin and liver function tests consistent with alcoholic hepatitis. PLAN: 1. The patient needs to stay in the ICU as he continues to be in critical condition. 2. Continue lactulose. 3. Continue the antibiotics. 4. Continue albumin. 5. Adjust IV fluids - chart listed on 2 separate IV fluids. ADDENDUM: Chest x-ray showed a right upper lobe infiltrate consistent with either aspiration or hospital-acquir ed pneumonia. The patient will be started on Zosyn at a renal dose and his ceftriaxone will be disco ntinued.
[2017-05-25] MEDS ORDERED: Potassium Chloride 40 MEQ in Sodium Chloride 0.9% 250 ML 250 ML IVPB SCH (08:00)
--- NOTE | 2017-05-25 08:13 | RAD ---
PORTABLE CHEST 1 VIEW: DATE: 05/25/17. TIME: 7:39 a.m. HISTORY: Lung congestion. FINDINGS/IMPRESSION: Comparison is made with the exam of previous day. Endotracheal tube has been removed in the interim. The nasogastric tube is either in the mid esophagus or the left main bronchus. New patchy consolid ation is seen in the right mid lung. NO pneumothoraces or large effusions are identified. Report was called over the telephone to the patient's nurse, Lobito Ballard R.N., at 8:00 a.mSean CODE CR POS: [facility]
[2017-05-25] MEDS: Rifaximin 550 MG TAB PO SCH ×3 (09:27→20:35)
[2017-05-25] MEDS: Piperacillin/Tazobactam 2.25 GM in Sodium Chloride 0.9% 100 ML IVPB SCH ×2 (09:28→20:34)
[2017-05-25 12:11] LABS: HBSAg Index 0.21 S/CO (0-0.99); Hep B Surf AB Non-Reactive (NonReactive); Hep B Surf Ag Non-Reactive S/CO (NonReactive)
[2017-05-25 12:52] LABS: Hep B Core Total Ab Reactive (NonReactive); Hep B Core Total Index 7.83 S/CO (0-0.79); Hep C IgG Ab Reflex HepC Qnt (NonReactive)
[2017-05-25 12:53] LABS: Hep C Index 13.33 S/CO (0-0.79)
[2017-05-25 13:57] LABS: Hemoglobin 8.3 g/dL (14.0-18.0); Mean Corpuscular HGB CONC 34.3 g/dL (32.0-36.0); Mean Corpuscular Hemoglobin 35.5 pg (27.0-31.0); Mean Platelet Volume 8.2 fL (7.4-10.4); Platelet Count 89 thou/uL (130-400); RBC Distribution Width 18.2 % (11.5-14.5); Red Blood Cell (RBC) Count 2.34 mill/uL (4.70-6.10); White Blood Cell (WBC) Count 11.2 thou/uL (4.8-10.8)
[2017-05-25 14:25] VITALS: BMI 28.8
[2017-05-25] MEDS ORDERED: Lidocaine 1% w/Epinephrine 1:200K 30 ML VIAL ONE (14:54)
--- NOTE | 2017-05-25 15:34 | PQF ---
JOSHUA FREEMAN MICHAEL E MD [id number] CLINICAL DOCUMENTATION IMPROVEMENT CLARIFICATION FORM: ICD-10 Updated PLEASE DO AN ADDENDUM TO THE PROGRESS NOTE WITH ANY DOCUMENTATION UPDATES OR ADDITIONS AND CARRY THROUGH TO DC SUMMARY. THANK YOU. DATE: 05-25-17 ATTN: EJ LOPEZ / DR. FRANCISCO MALAGON Please exercise your independent, professional judgment in responding to the clarification form. Clinical indicators are provided on the bottom of this form for your review Please check appropriate box(s): [ x ] Acute blood loss anemia [ ] Anemia: [ ] Aplastic [ ] Nutritional [ ] Drug induced (specify) ___ [ ] Hemolytic [ ] Hereditary [ ] Acquired [ ] Autoimmune [ ] Non-autoimmune [ ] Enzyme disorder [ ] Chronic Anemia: [ ] Blood loss [ ] Hemolytic [ ] Simple [ ] Due to Vitamin B12 Deficiency [ ] Other [ ] Anemia of Chronic Disease (please specify) [ x ] Other diagnosis ____Esophageal Varices - bleeding [ ] Unable to determine For continuity of documentation, please document condition throughout progress notes and discharge summary. Thank You. CLINICAL INDICATORS - SIGNS / SYMPTOMS / LABS ER: ANEMIA R/T BLOOD LOSS HYPOTENSION GI HEMORRHAGE H&P: VOMITING BLOOD AMS HGB HCT 2-13 7.5 22.8 2-14 7.4 21.4 2-15 9.4 27.9 2-16 8.3 24.2 RISK FACTORS H&P: HX STOMACH CANCER W/ PERFORATED ULCER IN PAST CIRRHOSIS; ALCOHOL ABUSE GI CONSULT: ANEMIA W/ HX OF HEMATEMESIS TREATMENTS: IMCU MONITORING GI CONSULT - EGD - FRESH BLOOD W/ SMALL CLOTS IN PROXIMAL STOMACH AND DISTAL ESOPHAGUS 2-13 2 UNITS FFP 2- / 2-14 4 UNITS PRBC THANK YOU, KAYA (This form is maintained as a part of the permanent medical record) 2014 [employer]. All Rights Reserved Kaya Sanders RN, BS [email or web address]
--- NOTE | 2017-05-25 15:37 | RAD ---
ABDOMEN 1 VIEW: HISTORY: Nasogastric tube placement. FINDINGS: Gas is apparent within the colon. Visualized small bowel gas pattern is nonspecific. Metallic clips overlie the left upper quadrant. Nasogastric tube overlies the stomach. IMPRESSION: Nasogastric tube is in good radiographic position. POS: [facility]
--- NOTE | 2017-05-25 15:55 | PRG ---
DATE OF SERVICE: 05/25/2017 SUBJECTIVE: This is a 61-year-old gentleman being seen for acute kidney injury. The patient remains nonverbal. OBJECTIVE: GENERAL: Patient is resting. VITAL SIGNS: Afebrile, pulse 70, breathing at 16, blood pressure 120/58. GENERAL APPEARANCE AND MENTAL STATUS: Fair. HEAD/NECK: Normocephalic. Atraumatic. EYES: EOMI. No deformity. EARS: Clear. No ulcers. NOSE: Intact. No lesions. MOUTH: Clear. No discharge. THROAT: Clear. No exudate. LUNGS: Clear. No crackles. CARDIAC: S1, S2. No rub. ABDOMEN: Benign. BS+. GENITALIA/RECTUM: Beltran absent. BACK/EXTREMITIES: Edema 0+ Ulcer- NEUROLOGICAL: The patient is resting. SKIN: Rash- Bruise- LYMPHATICS: Edema- Ulcer- LABORATORY: Labs showing hemoglobin 8.3, creatinine 4.4. ASSESSMENT AND RECOMMENDATIONS: 1. Chronic kidney disease stage 4. Oliguric. Discussed risks versus benefits of dialysis with the family. Family is not sure. 2. Multiorgan failure. 3. Metabolic acidosis, stable. 4. Hypokalemia. No urgent indication for dialysis, but the patient will eventually need dialysis in the next 24-48 hours. Overall, prognosis is extremely poor. Her spouse was not available today, ni ella was available, and recommendation was discussed.
--- NOTE | 2017-05-25 16:05 | PQF ---
JOSHUA FREEMAN MICHAEL E MD [id number] CLINICAL DOCUMENTATION IMPROVEMENT CLARIFICATION FORM: ICD-10 Updated PLEASE DO AN ADDENDUM TO THE PROGRESS NOTE WITH ANY DOCUMENTATION UPDATES OR ADDITIONS AND CARRY THROUGH TO DC SUMMARY. THANK YOU. DATE: 05-25-17 ATTN: JE LOPEZ / DR. FRANCISCO MALAGON Please exercise your independent, professional judgment in responding to the clarification form. Clinical indicators are provided on the bottom of this form for your review Please check appropriate box(s): [ x ] Hypovolemic Shock [ ] Shock Unspecified [ x ] Other diagnosis hepatic encephalopathy [ ] Unable to determine In addition, please specify: Present on Admission (POA): [ ] Yes [ x ] No [ ] Unable to determine For continuity of documentation, please document condition throughout progress notes and discharge summary. Thank You. CLINICAL INDICATORS - SIGNS / SYMPTOMS / LABS ER: ANEMIA R/T BLOOD LOSS HYPOTENSION GI HEMORRHAGE SBP 75 - 112 DBP 51 - 65 H&P: VOMITING BLOOD AMS HGB HCT -13 7.5 22.8 -14 7.4 21.4 -15 9.4 27.9 -16 8.3 24.2 RISK FACTORS ER: ANEMIA R/T BLOOD LOSS HYPOTENSION GI HEMORRHAGE NEPHRO CONSULT: FELICITAS W/ CKD W/ MULTIORGAN FAILURE, MOST LIKELY/T DECREASED EFFECTIVE ARTERIAL BLOOD VOLUME AND HYPOTENSION. TREATMENTS: ICU MONITORING MAR: ROCEHPIN IV 05-23 / 05-24 IVF @ 125 mls/hr 05-22 / 05-23 / 05-24 / 05-25 ON VENT 05-22 @2238 OFF VENT 05-24 @ 0810 THANK YOU, KAYA (This form is maintained as a part of the permanent medical record) 2015 [employer]. All Rights Reserved Kaya Sanders RN, BS [email or web address]
[2017-05-25 17:47] LABS: INR-International Normal Ratio 3.4; Prothrombin Time 35.7 SEC (12.0-14.7)
--- NOTE | 2017-05-25 18:00 | OP ---
PROCEDURE: Triple lumen dialysis catheter placement. INDICATIONS: Need for dialysis access. DESCRIPTION OF PROCEDURE: Mr. Gonzalez was identified in the critical care unit. A timeout was perform ed. The right groin was prepped and draped in normal sterile fashion. The right femoral vein was id entified using ultrasound at which time 8 mL of plain lidocaine were injected into the skin and to th e subcutaneous tissues. Finder needle was placed. Access was made to the right femoral vein. The J -wire was advanced without difficulty. Finder needle was removed. The appropriate dilator was advan edd and then the 13-[place] triple lumen temporary dialysis catheter was placed. All three ports had immediate flow of blood and we were able to be flushed easily. The catheter was secured via sutures and then OpSite was placed over top at the end. The three lines were flushed with heparin. The matthew ent tolerated the procedure well and there was minimal blood loss.
--- NOTE | 2017-05-26 00:09 | PRG ---
DATE OF SERVICE: 05/25/2017 SUBJECTIVE: Mr. Gonzalez had uneventful night. He continues not to void. OBJECTIVE: VITAL SIGNS: Heart rates in the 120-100 range. Blood pressure 96/56 to 104/86, pulse presently is 1 18. HEENT: Sclerae are icteric. Conjunctivae are pink. LUNGS: Coarse rhonchi. He does open eyes and follows some commands and sip water. ABDOMEN: Soft, nontender without rebound. EXTREMITIES: No clubbing, cyanosis, or edema. LABORATORY STUDIES: White count 10.5, hemoglobin was 8.2 this morning, platelet count 7000 this morn ing. INR on was 2.6. Sodium 136, potassium 3.1, BUN and creatinine are 36 and 4.41. Bilirubin is 18.3, AST 50, ALT is 42, albumin 3.1. Ammonia was 40 on 05/22/2017. PRESENT MEDICATIONS: On piperacillin-tazobactam. He is on Protonix drip, octreotide drip, multivita min, albumin 25 q.6, and rifaximin. ASSESSMENT: 1. Gastrointestinal bleed secondary to severe erosive esophagitis with liver failure and coagulopath y. This appeared to be resolved. This morning, there was concern by the radiologist the NG tube has been displacement, so it was removed by the nurses and attempted to place a new NG tube. He did hav e some hematemesis. His vital signs have stayed stable; however this has stopped, I placed another N G tube at the bedside now and there is no fresh blood. There is some old blood coming from it. It i s unclear if this is from his nose. We attempted an NG-tube placement from esophagus or from his sto mach. Presently, there are no signs of acute hemorrhage. He is no longer vomiting. A repeat hemogl obin at 1335 was 8.3, the same as at 5:20 this morning. 2. Hepatic encephalopathy. His ammonia was only 40 when checked on . He is on Xifaxan and lact ulose. He is responsive and follow some commands. We will continue this and wait for another ammoni a check. 3. Acute renal failure. This appears to be hepatorenal syndrome. His BUN and creatinine are stable today, but he continues to not make urine. He continues on albumin, octreotide for hepatorenal synd hailee. 4. Esophageal varices grade 1. These were nonbleeding at the time of endoscopy. 5. History of gastric cancer. No evidence of recurrence at the time of endoscopy. 6. Cirrhosis with no evidence of hepatoma on recent screening MRI outpatient setting last week and n ormal AFP. 7. Decompensation and liver disease, this seems to be related to continued alcohol intake. Cannot r ule out viral illness; however, serologies were negative in the office and Tylenol levels were negati ve. A grossly elevated bilirubin and mild AST, greater than ALT elevations would be consistent with alcoholic hepatitis. PLAN: 1. NG tube replaced as noted above, monitor H&H. 2. We will continue lactulose. 3. Continue Xifaxan. 4. Agree with broad-spectrum antibiotics for possible pneumonia. 5. Continue albumin and octreotide for hepatorenal. 6. I did have a conversation with the patient's and one of his daughters today. I explained th e very poor prognosis with hepatorenal syndrome and very high mortality rate with this. He has got s ome issues with pneumonia presently. He has hepatorenal syndrome and he has cirrhosis with severely decompensated liver disease. His mortality rate is very high at this time, and they are considering to proceed with dialysis. I did inform that likely would not change outcomes. We would continue agg ressively try to perfuse his kidneys as we are doing. I talked about the issues of end of life care and they do not want him to have CPR or shocking if he would have sudden cardiac . They are sti ll on the fence and debating about if he would require going back on the ventilator and doing that. Palliative care consultation has been put in, and they will come by and talk with the family as well. The patient states her had said that if there was a chance, he wanted everything done, but if it became futile, he wanted it stopped. At this time, we should continue with aggressive medical management. I think that we will make him no CPR as far as intubation as he develops worsening respi ratory function that may be reasonable for the time. If it becomes obvious this is futile care, then I think we would move towards comfort measures as that is what the expressed the patient wanted .
[2017-05-26] MEDS: Albumin 25% 25 GM/100 ML BOT IVPB SCH ×2 (05:06→13:29)
[2017-05-26] MEDS: D5 1/2 NS w/20 mEq KCL 1,000 ML IV SCH (05:06)
[2017-05-26] MEDS: Multivitamins, Adult 10 ML, Folic Acid 1 MG, Thiamine HCl 100 MG in Dextrose 5 %-0.45 %... IV SCH (05:25)
[2017-05-26 06:51] LABS: INR-International Normal Ratio 3.6; Prothrombin Time 38.1 SEC (12.0-14.7)
[2017-05-26 06:52] LABS: ALT (SGPT) 32 U/L (8-55); AST (SGOT) 105 U/L (5-34); Albumin 3.4 g/dL (3.5-5.0); Alkaline Phosphatase 55 U/L (40-150); Anion Gap 15 mmol/L (10-20); BUN (Urea Nitrogen) 41 mg/dL (8.4-25.7); Bilirubin, Total 18.5 mg/dL (0.2-1.2); Calc. Creatinine Clearance 24 mL/min (70-130); Calcium 9.1 mg/dL (7.8-10.44); Carbon Dioxide 16 mmol/L (22-29); Chloride 110 mmol/L (98-107); Estimated GFR-MDRD 15; Globulin 2.1 g/dL (2.4-3.5); Glucose 108 mg/dL (70-105); Potassium 3.5 mmol/L (3.5-5.1); Protein, Total 5.5 g/dL (6.0-8.3); Sodium 137 mmol/L (136-145)
[2017-05-26 07:51] LABS: Band 30 % (5-11); Crenated RBC SLIGHT = 1-5 cells (100X) (None Seen); Lymphocytes 11 % (21-51); MDiff Complete? YES; Macrocytosis SLIGHT = 6-15 cells (100X) (0-5/hpf); Mean Corpuscular Hemoglobin 35.7 pg (27.0-31.0); Mean Platelet Volume 8.1 fL (7.4-10.4); Metamyelocyte 2 % (0-0); Monocytes 1 % (0-10); Neutrophil 55 % (42-75); Nucleated RBC 4 % (0); PLT Morphology Comment Appears Decreased; Platelet Count 84 thou/uL (130-400); RBC Distribution Width 18.2 % (11.5-14.5); Red Blood Cell (RBC) Count 1.96 mill/uL (4.70-6.10); Target Cells SLIGHT = 2-5 cells (100X) (0-1/hpf); White Blood Cell (WBC) Count 9.9 thou/uL (4.8-10.8)
[2017-05-26] MEDS: Pantoprazole 80 MG, Admixture Fee 1 EACH in Sodium Chloride 0.9% 100 ML IVP SCH (09:47)
[2017-05-26] MEDS: Piperacillin/Tazobactam 2.25 GM in Sodium Chloride 0.9% 100 ML IVPB SCH (09:52)
--- NOTE | 2017-05-26 10:38 | PRG ---
DATE OF SERVICE: The patient is somewhat agonal, he is unresponsive. OBJECTIVE: VITAL SIGNS: Pulse 105, blood pressure 181/58, respiratory rate 24, temperature 98.4. HEENT: Shows a nasogastric tube in place. CHEST: Chest shows upper airway sounds, a lot of gurgling. CARDIOVASCULAR: Regular rate and rhythm. ABDOMEN: Benign. LABORATORY DATA: Shows hepatitis C serology was positive and hepatitis B core antibody is positive. Hemoglobin is 7.0 and 20.5, PT is 38.1 with an INR of 3.6. Chemistries show a CO2 of 16, BUN 41, cr eatinine 4.85, glucose 108, total bilirubin 18.5, AST 105, albumin 3.4. ASSESSMENT: 1. End-stage liver disease with cirrhosis and alcoholic hepatitis. 2. Coagulopathy. 3. Esophageal varices. 4. History of gastric cancer. RECOMMENDATIONS: 1. Comfort care. 2. DNR once additional family members arrive.
[2017-05-26] MEDS: Rifaximin 550 MG TAB PO SCH (10:43)
[2017-05-26] MEDS ORDERED: Heparin 1,000 UNITS/ML VIAL ONE (11:11)
--- NOTE | 2017-05-26 12:13 | PRG ---
DATE OF SERVICE: 05/26/2017 NEPHROLOGY PROGRESS NOTE SUBJECTIVE: This is a 61-year-old gentleman being seen for acute kidney injury and remains anuric. PHYSICAL EXAMINATION: GENERAL: Patient is resting. VITAL SIGNS: Afebrile, pulse 76, breathing 16, blood pressure 107/58. HEAD/NECK: Normocephalic. Atraumatic. EYES: EOMI. No deformity. EARS: Clear. No ulcers. NOSE: Intact. No lesions. MOUTH: Clear. No discharge. THROAT: Clear. No exudate. LUNGS: Clear. No crackles. CARDIAC: S1, S2. No rub. ABDOMEN: Benign. BS+. GENITALIA/RECTUM: Beltran absent. BACK/EXTREMITIES: Edema 0+ Ulcer- NEUROLOGICAL: The patient is resting. SKIN: Rash- Bruise- LYMPHATICS: Edema- Ulcer- LABORATORY DATA: Show hemoglobin 7, bicarbonate 16, and creatinine 4.85. ASSESSMENT AND PLAN: Stage 5 chronic kidney disease with progressive decrease in renal function. Ri sks versus benefits of dialysis were discussed. Dialysis was tried but the catheter was malfunctioni ng. The catheter is functioning today, so we will give that a try. Overall, prognosis is extremely poor. There is multiorgan failure and poor prognosis discussed with the spouse.
[2017-05-26] MEDS: Morphine 4 MG/ML Carpuject SLOW IVP SCH ×2 (12:46→15:05)
[2017-05-26] MEDS: Morphine 10 MG/ML CARPUJECT SLOW IVP SCH ×5 (16:45→22:18)
[2017-05-27] MEDS: Morphine 10 MG/ML CARPUJECT SLOW IVP SCH ×5 (00:05→09:23)
--- NOTE | 2017-05-27 00:22 | PRG ---
DATE OF SERVICE: 05/26/2017 SUBJECTIVE: Mr. Gonzalez is unresponsive. He has a " rattle." I have explained this to the family; they are totally comfortable with supportive care and comfort me asures at this point. OBJECTIVE: VITAL SIGNS: He is afebrile, heart rate is 104, respiratory rate in the 30s and blood pressure 111/5 8. LUNGS: Remarkable for diffuse rhonchi. His upper airway noises well. HEART: Regular rhythm. ABDOMEN: Soft. LABORATORY DATA: White count 9.9, hemoglobin 7.0 and platelets 55,000. Sodium 137, potassium 3.5, chloride 110, bicarbonate 16, BUN 41 and creatinine 4.5. IMPRESSION AND PLAN: Multiorgan failure. I have explained to the family that he will not be around long. I estimate anywhere from 12-48 hours, that is all he has. Do not resuscitate order has been p laced on the chart. There are family members coming to town, but the rest of the family does not wan t him resuscitated should he pass before they get here. He can be transferred out if he makes it thr ough the night; he should remain in the unit for comfort for now.
[2017-05-27 04:24] VITALS: TEMP 97.5
--- NOTE | 2017-05-27 10:06 | DS ---
SUMMARY DATE OF ADMISSION: 05/22/2017 DATE OF : 05/27/2017 CHIEF COMPLAINT: On admission, gastrointestinal bleed with hematemesis. The patient had been scoped by Dr. Briones and found to have significant esophageal varices that despi te all best measures continued to bleed. It was found that he had a history of alcoholism that was m uch more severe than he had let his physicians know such that it was evident that he also had cirrhos is and now coagulopathy. He was given numerous transfusions and sent to ICU for supportive care. Dr Sean Rosales and Dr. Conroy also saw the patient in consultation. They were brought in for ventila tor management. During this time, it became evident that he also had acute on chronic renal insuffic iency. Dr. Stevens saw the patient from that standpoint. Over the next 24 hours, the patient failed to improve. He remained intubated. He was transfused again, but remained on the ventilator and nonres ponsive. By 05/25/2017, he still was not responsive to stimulation. His potassium had dropped. He was developing pulmonary effusion. The electrolytes were corrected, but he did not respond to therap y. On chest x-ray, it was felt that he was developing pneumonia in the right lung. The patient per Dr. Briones continued on octreotide since this may help the hepatorenal syndrome which this patient wa s deep within. They also continued the IV Protonix for the sake of the erosive esophagitis. Due to the developing pneumonia, the patient was placed on Zosyn at a renal dose and the ceftriaxone was dis continued. The patient had a dialysis catheter placed on 05/25/2017 and thought that we would possib ly begin dialysis, had initially failed in our attempt to do so and by 05/26/2017, it was evident primo t the patient was decompensating and did not have long to live. The family has been counseled along the way, especially in the last 2 days that the patient's prognosis was extremely poor and he was all owed to be a DNR by the evening of 05/26/2017. By 7:00 a.m. 05/27/2017, he began to have a very sarthak ycardic rhythm at 26 beats per minute and finally he at 07:15 on 05/27/2017. His family was consoled, questions answered, the lines will be discontinued and the patient will be released to the mortuary. The diagnosis at the time of demise was bleeding esophageal varices with secondary ane paris, alcoholism with cirrhosis and coagulopathy, hepatorenal syndrome, stage 5 kidney disease, alcoho lic hepatitis with end-stage liver disease and history of gastric cancer, hypovolemic shock with seco ndary hypertension requiring ICU monitoring and transfusions, severe erosive esophagitis, hepatic enc ephalopathy, and finally, hospital community-acquired pneumonia. The time necessary to examine the documents, examine the patient, counseled the family and answered t heir questions and then prepare the summary came to forty minutes.
--- NOTE | 2017-06-02 17:46 | EKG ---
Test Reason : Blood Pressure : / mmHG Vent. Rate : 113 BPM Atrial Rate : 113 BPM P-R Int : 000 ms QRS Dur : 094 ms QT Int : 384 ms P-R-T Axes : 000 054 -85 degrees QTc Int : 526 ms Sinus tachycardia with Fusion complexes Abnormal ECG Confirmed by CLARIBEL ESTRADA, FRANCISCO ([id number]), research editor LUNA DIANA ([id number]) on 06/02/2017 5:45:47 PM Referred By: Confirmed By:FRANCISCO SANFORD MD
== END 2017-05-27 07:17 | disposition expired | DRG 432 ==
LOC: ERS 09:36 → ERHOLD 11:46 → IMCU/EMU 14:27 → CCU 18:20
PROVIDERS: ADMIT Specialist; ATTEND Specialist
PROC: 30233K1 Transfusion of Nonautologous Frozen Plasma into Peripheral Vein, Percutaneous Approach (ICD-10-PCS; principal; 2017-05-22)
PROC: 5A1945Z Respiratory Ventilation, 24-96 Consecutive Hours (ICD-10-PCS; 2017-05-22)
PROC: 30233N1 Transfusion of Nonautologous Red Blood Cells into Peripheral Vein, Percutaneous Approach (ICD-10-PCS; 2017-05-22)
PROC: 0BH17EZ Insertion of Endotracheal Airway into Trachea, Via Natural or Artificial Opening (ICD-10-PCS; 2017-05-22)
PROC: 0DJ08ZZ Inspection of Upper Intestinal Tract, Via Natural or Artificial Opening Endoscopic (ICD-10-PCS; 2017-05-22)
PROC: 06HM33Z Insertion of Infusion Device into Right Femoral Vein, Percutaneous Approach (ICD-10-PCS; 2017-05-25)
DX: K70.30 Alcoholic cirrhosis of liver without ascites (principal); K22.11 Ulcer of esophagus with bleeding; K70.10 Alcoholic hepatitis without ascites; R57.1 Hypovolemic shock; J96.01 Acute respiratory failure with hypoxia; I85.11 Secondary esophageal varices with bleeding; J18.9 Pneumonia, unspecified organism; I95.9 Hypotension, unspecified; K92.0 Hematemesis; I12.0 Hypertensive chronic kidney disease with stage 5 chronic kidney disease or end stage renal disease; N18.5 Chronic kidney disease, stage 5; E87.2 Acidosis; D62 Acute posthemorrhagic anemia; N17.9 Acute kidney failure, unspecified; E78.5 Hyperlipidemia, unspecified; F10.10 Alcohol abuse, uncomplicated; Z85.028 Personal history of other malignant neoplasm of stomach; G89.29 Other chronic pain; M54.2 Cervicalgia; M54.9 Dorsalgia, unspecified; F17.290 Nicotine dependence, other tobacco product, uncomplicated; D63.8 Anemia in other chronic diseases classified elsewhere; Z90.3 Acquired absence of stomach [part of]; Z51.5 Encounter for palliative care; Z66 Do not resuscitate; K70.40 Alcoholic hepatic failure without coma; E87.6 Hypokalemia; Y95 Nosocomial condition; Z86.711 Personal history of pulmonary embolism; Z92.21 Personal history of antineoplastic chemotherapy; Z92.3 Personal history of irradiation
CPT/HCPCS: 36415; 36430; 51702; 70450; 71045; 74018; 80053; 80307; 81003; 81015; 82140; 82274; 82550; 82553; 82805; 83605; 83690; 83735; 83880; 84100; 84484; 85025; 85610; 85730; 86704; 86706; 86803; 86850; 86900; 86901; 87040; 87086; 87340; 87804; 93005; 94002; 94003; 94760; 96361; 96365; 96368; 96375; A4216; C1752; C9113; J0696; J1642; J1644; J2060; J2270; J2354; J2405; J2543; J2704; J3010; J3411; J3480; J7042; J7050; P9016; P9047; P9059